=== PATIENT | male | born 1985 | race Two or more races ===

== ENCOUNTER 2021-10-04 15:14 | Outpatient (CLI) | payer OTHER ==
--- NOTE | 2021-10-04 16:13 | SLEEP CARE CONSULTATION ---
Information from patient questionnaire entered by Martell Collins MA. I have reviewed and concur with the information entered by Martell Collins MA. This document represents the service I personally performed and the decisions made by me, [place] ARNP. History of Present Illness Service Date and Time: 10/04/2021 1514 Reason for Visit: New patient (ONSET 08/28/2021, NO PRIORS,) Chief Complaint: reports: Unrefreshed sleep, Snoring, Excessive daytime sleepi ness, Observed pauses in breathing, Fatigue, Frequent awakenings at night Date of Onset: 2 MONTHS Usual bedtime: 10 PM Time it takes to fall asleep: 1 HOURS Snores at night: Yes Observed to quit breathing while asleep: Yes Sleeps alone due to snoring: No Number of times waking at night: 3 Reasons for waking at night: reports: Snoring, Bathroom. denies: Choking, Gasping for air Toss, Turn, or Twitch while sleeping: Yes Recalls having dreams: No Usually gets out of bed at: 0600; weekends 0800 Feels refreshed in the morning: No Morning headache: Yes (3 times a week; they last a few hours, takes analgesic) Sleepy or fatigued during the day: Yes Ever fallen asleep while driving: Yes (drowsy driving, no accidents) Takes day naps: Yes (on weekends, sometimes about 2 hours) Dreams during day naps: No Prior sleep studies: No Additional HPI information: I had the pleasure of seeing SE CANSECO today regarding the possibility of him having a sleep disorder. His current complaints are unrefreshed sleep, snoring, excessive daytime sleepiness, observed pauses in breathing, fatigue and frequent night awakenings. He states that he told his PCM that he wakes up tired and is tired throughout the day. He states he is just wanting to sleep during the day. It is affecting his work and his memory seems to be affected. He states he snores loudly and has occasional pauses in breathing when sleeping. He states most of his daytime fatigue started a couple of months ago. He had not paid attention to his snoring, etc in the past. He thinks it is just coming together as he gets older. He states there is no sleep disordered breathing history in his family but there is snoring. He is in the [employer] and deploying to [place] in [place]. 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 Patient is Single and lives in . Have you smoked in the past 12 months: No Alcohol use: Yes Alcohol amount and frequency: 3 X MONTHLY Caffeine use: No Family History Family history of sleep disordered breathing: Yes Family Hx Sleep Apnea: Father: Snoring, Grandparent: Snoring Allergies and Home Medications Known drug allergies: No Drug allergies reviewed: Yes Home medication list reviewed: Yes Allergy and home medication list: no daily medications or supplements Review of Systems Weight gain over past 5 years: 10 Cardiovascular: denies: high blood pressure Gastrointestinal: denies: heartburn Urinary: reports: frequency Neurological: denies: head trauma Psychiatric: denies: anxiety, depression, mood disorder Ear/Nose/Throat: reports: wisdom teeth removed. denies: injury to nose, tonsillectomy Endocrine: reports: increased urination. denies: thyroid disease Musculoskeletal: reports: back pain Immunologic: denies: allergies to food or environment Physical Exam Vital signs obtained and entered by: Cecelia COLLINS CMA [facility] Blood Pressure: 129/89 (LEFT, 69 PULSE, RESP 14, ) Cuff size: wrist Heart Rate: 65 O2 Saturation: 97 (N95) Height: 5 ft 6 in Weight: 164 lb (PT CLOTHES) Body Mass Index: 26.4 BMI Classification: Overweight Neck circumference: 16 (INCHES) Mouth and throat: narrow oropharynx Soft palate: long Hard palate: normal Uvula: normal Uvula visualization: 25% Mallampati Class III Tongue: enlarged in size with teeth dickey on lateral edges Tonsils: small Neck: normal w/o lymphadenopathy or thyromegaly Heart: regular rate and rhythm Impression and Plan 1. Suspected Obstructive Sleep Apnea-Hypopnea Syndrome, as suggested by a history of loud and irregular snoring, observed cessation of breath while asleep, morning headache, frequent awakening during the night, unrefreshed sleep, cognitive impairment, and excessive daytime sleepiness. Narrow oropharynx and obesity are common predisposing factors for obstructive sleep apnea-hypopnea syndrome. I recommend proceeding to polysomnography to confirm the diagnosis and to assess severity. If the patient has significant sleep disordered breathing, a manual CPAP titration study will also be performed to find the optimal treatment pressure. I informed the patient of what the sleep studies involve and after some discussion, obtained agreement to proceed. The pathophysiology of obstructive sleep apnea-hypopnea syndrome was discussed with the patient and health risks of cardiovascular and cerebrovascular disease if not treated. Risks of drowsy driving discussed in detail and patient advised to avoid long distance driving and to pullman car repairer at the first sign of drowsiness. Patient agreed to plan. * Schedule polysomnography * Avoid long distance driving or driving when feeling sleepy. * Avoid alcohol, sedative and muscle relaxant around bedtime. * Attempt to lose weight. * Review instructions provided by trained office staff on how to prepare for the sleep study. * Return for follow-up after sleep study completed. Counseling Topics: Weight loss health impact Visit Type: In Office Time Spent with Patient (minutes): 30 Provider Statement: I spent 100% of the Face to Face Visit with the patient with greater than 50% spent counseling the patient and coordination of care.
[2021-10-04 16:16] VITALS: BP 129/89
== END 2021-10-04 15:15 | disposition home or self-care (01) ==
LOC: SC 15:14
PROVIDERS: ATTEND Nurse Practitioner Family
DX: R06.83 Snoring (principal); R06.81 Apnea, not elsewhere classified; G47.8 Other sleep disorders; R51.9 Headache, unspecified; R41.89 Other symptoms and signs involving cognitive functions and awareness; G47.10 Hypersomnia, unspecified
CPT/HCPCS: 99203; 99212

== ENCOUNTER 2021-10-15 08:18 | Outpatient (CLI) | payer OTHER | END 2021-10-15 08:19 | disposition home or self-care (01) | LOC: SC 08:18 | PROVIDERS: ATTEND Nurse Practitioner Family | DX: R09.02 Hypoxemia (principal) | CPT/HCPCS: 95806 ==

== ENCOUNTER 2021-10-24 10:24 | Outpatient (CLI) | payer OTHER ==
--- NOTE | 2021-10-24 11:06 | SLEEP CARE CONSULTATION ---
Information from patient questionnaire entered by Martell Brown MA. I have reviewed and concur with the information entered by Martell Brown MA. This document represents the service I personally performed and the decisions made by , [place] ARNP. History of Present Illness Service Date and Time: 10/24/2021 1024 Initial [place] Sleepiness Scale score: 15 (2021) Current [place] Sleepiness Scale score: 19 (10/16) Additional HPI information: SE CANSECO returns for follow up and results of the recently performed home sleep study. The patient was informed of the following findings: No significant sleep disordered breathing with an average AHI of 3.4 and cielo oxygen saturation of 90%. However patient did not sleep supine so sleep disordered breathing on his back cannot be ruled out. I explained the pathophysiology behind obstructive sleep apnea. Patient does not have sleep apnea and was advised how weight gain could increase the risk of developing sleep apnea in the future. Patient has mild snoring. Snoring can be reduced by weight loss. Weight loss is best achieved with diet consult. Patient instructed to contact PCP for referral. Snoring can also be treated with an oral appliance from a dentist. Advised to check insurance coverage. In addition, an ENT evaluation can be do to see if other treatment is indicated. Patient counseled not drink alcohol less than 4 hours before bedtime as it can increase snoring and apnea. Patient was cautioned about risks of drowsy driving until sleepiness symptoms resolve. Sleep Study - Results Type of Sleep Study: Home sleep study (F/U HOME STUDY, 10/15/21 [facility],) Prior sleep studies: No Polysomnography/Home Sleep Study results: Physician Impression: The quality of the study is good. The length of the study is adequate (> 240 minutes). Please also see the tabulated and graphic data. 1. No significant sleep disordered breathing, with an AHI of 3.4/hr and [place] SaO2 of 90%. During the study, the patient had 9 apneas (9 obstructive, 0 central, 0 mixed) and 10 hypopneas. The longest episode lasted 102.5 seconds. The patient did not sleep supine during this study. 2. Hypoxemia (ICD-10 R09.02), , with the lowest oxygen saturation of 90 % and 0.2 minutes with SaO2 under 90%. Baseline oxygen saturation was normal (Average oxygen saturation was 96%). Allergies and Home Medications Home medication list reviewed: Yes (no changes) Review of Systems Review of systems same as previous: Yes (no changes) Physical Exam Vital signs obtained and entered by: SRIDHAR ORTIZ Blood Pressure: 124/80 (LEFT, PULSE 67, RESP 16. ) Heart Rate: 67 O2 Saturation: 98 (N95) Height: 5 ft 6 in Weight: 165 lb (PT CLOTHES) Body Mass Index: 26.6 BMI Classification: Overweight Impression and Plan 1. Snoring but no significant sleep disordered breathing. Patient advised that often weight loss will reduce snoring as well as apnea risk. An oral appliance can also be used for snoring. This would require a dental consultation. Patient cautioned not to use other online appliances as can cause bite issues. A list of accredited dentists in [facility] and one local dentist who makes oral appliances is available in office. Patient is advised to check if insurance will cover. An ENT consult can also be helpful to determine if any other treatment is an option. 2. Excessive daytime sleepiness. Patient continues to have EDS and states that he only slept non-supine for the study because he thought that he was supposed to avoid back sleeping. I would like his to repeat the sleep study in the sleep lab to get a better evaluation with him also sleeping supine. 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 He was advised to get a referral back to this office when he returns to the area and we will order another sleep study at that time. In the meantime, I encouraged him to practice positional therapy and sleep on his sides until able to repeat the study in the lab. He voiced understanding and agreement with this plan. * Return to office for further evaluation when back in the area * Attempt to lose weight * Avoid alcohol consumption near bedtime * The patient is cautioned about driving until sleepiness is completely resolved. Counseling Topics: Sleeping position, Weight loss health impact Visit Type: In Office Time Spent with Patient (minutes): 21 Provider Statement: I spent 100% of the Face to Face Visit with the patient with greater than 50% spent counseling the patient and coordination of care.
[2021-10-24 11:07] VITALS: BP 124/80
== END 2021-10-24 10:25 | disposition home or self-care (01) ==
LOC: SC 10:24
PROVIDERS: ATTEND Nurse Practitioner Family
DX: R09.02 Hypoxemia (principal); R06.83 Snoring; G47.10 Hypersomnia, unspecified; E66.3 Overweight; Z68.26 Body mass index [BMI] 26.0-26.9, adult
CPT/HCPCS: 99212; 99213

== ENCOUNTER 2022-05-25 08:07 | Outpatient (CLI) | payer OTHER ==
--- NOTE | 2022-05-27 09:14 | MRI Report ---
PROCEDURE: LUMBAR SPINE WO INDICATIONS: LOW BACK PAIN TECHNIQUE: Noncontrast sagittal T1 spin echo and T2 fast echo, sagittal STIR, axial T1 and T2 fast spin echo thr ough the lumbar spine. In cases with scoliosis, additional coronal T2 fast spin echo may be performe d. COMPARISON: None. FINDINGS: Image quality: Excellent. Alignment and Curvature: There is mild straightening of normal lumbar curvature. There is 6 mm retro listhesis of L5 on S1. Bone Marrow: Marrow is of normal overall signal. No acute vertebral body compression fractures. Spinal Cord: Conus medullaris terminates at the L1 level. Visualized cord demonstrates normal signa l and size. Paraspinous Soft Tissues: No paravertebral masses. Discs: Moderate desiccation is present at L5-S1. There is mild increased T2 signal posteriorly sugges tive annular fissure at L5-S1 T12-L1: No disc bulge, spinal stenosis or foraminal narrowing. L1-L2: No disc bulge, spinal stenosis or foraminal narrowing. L2-L3: No disc bulge, spinal stenosis or foraminal narrowing. L3-L4: No disc bulge, spinal stenosis or foraminal narrowing. L4-L5: No disc bulge, spinal stenosis or foraminal narrowing. L5-S1: Mild disc bulge with posterior central protrusion. No spinal stenosis. Trace left foraminal narrowing. IMPRESSION: Mild disc bulge with posterior central protrusion without spinal stenosis at L5-S1. Trace left forami nal narrowing. Reviewed by: Kourtney Murphy MD on 05/27/2022 9:12 AM PDT Approved by: Kourtney Murphy MD on 05/27/2022 9:12 AM PDT Station ID: [id number]
== END 2022-05-25 08:08 | disposition home or self-care (01) ==
LOC: DI 08:07
DX: M51.27 Other intervertebral disc displacement, lumbosacral region (principal)

== ENCOUNTER 2023-12-10 08:23 | Outpatient (CLI) | payer OTHER ==
--- NOTE | 2023-12-10 09:06 | Sleep Patient Instructions ---
Sleep Center Visit Summary - Patient Visit Information Reason for Visit: Annual followup - Patient Instructions Instructions Attached: Sleep Study Additional Instructions: You will be completing a sleep study, either an in-lab polysomnography (PSG) or home sleep study (HST). You will follow-up in the sleep care office after the sleep study is completed to hear the results and talk about therapy, if needed. You will be called by our office staff to schedule this appointment, but you may contact us with any questions. - Clinic Information Contact: [facility] [address] [place] [id number] [email or web address] T: [phone]
--- NOTE | 2023-12-10 09:08 | SLEEP CARE CONSULTATION ---
Information from patient questionnaire entered by Eliz Gamboa. I have reviewed and concur with the information entered by Eliz Gamboa. This document represents the service I personally performed and the decisions made by me, [place] ARNP. History of Present Illness Service Date and Time: 12/10/2023 08 Reason for follow up: annual (LAST SEEN 09/2021) Prior sleep studies: No Type of Sleep Study: Home sleep study (F/U HOME STUDY, 10/15/21 [facility],) HPI additional information: I had the pleasure of seeing SE CANSECO today regarding the possibility of him having a sleep disorder. His current complaints are difficulty falling asleep initially, snoring, observed pauses in breathing, unrefreshed sleep and excessive daytime sleepiness. He feels like his symptoms have been getting worse over time. He says he feels like he is having restless leg symptoms where his legs are shaking and sometimes during the day his arms will start shaking or feel very tense. His legs will shake when he is sitting and relaxing. The patient tells me that he normally goes to bed around 9:30 pm, and it takes him approximately 3.5 hours to fall asleep. He has taken diphenhydramine in the past to help him fall asleep. He says it did not help him fall asleep but he stayed asleep better. He is currently taking for muscle pain and that helps him to feel drowsy but not get to sleep. He has not had anything really help him fall asleep better. He has been told that he snores loudly and irregularly at night. He has been observed to stop breathing in his sleep. His bed partner has to sleep in another room due to the loudness of his snoring. He can recall waking up on the average of 3 times during the night. Most of the time he wakes up because of nightmares, gasping for air and other unknown reasons. He has occasionally awakened for his own snoring, and having to gasp for air. There is a lot of tossing and turning in his sleep. Generally he can recall having dreams. He usually wakes up at [id number] and does not feel refreshed. He usually does not have a morning headache. During the day he complains of feeling sleepy and fatigued. He has fallen asleep while driving and has gone out of the erick, no accident. He usually does not take naps during the day. There is somniloquy (sleep talking) but no somnambulism (sleep walking). He reports having impaired concentration during the day. Sleep Study - Results Type of Sleep Study: Home sleep study (F/U HOME STUDY, 10/15/21 [facility],) Prior sleep studies: No Subjective Initial [place] Sleepiness Scale score: 15 (2021) Current [place] Sleepiness Scale score: 20 (12/10/2023) Allergies and Home Medications Known drug allergies: No Drug allergies reviewed: Yes Home medication list reviewed: Yes (as listed) Allergy and home medication list: Allergies No Known Drug Allergies Allergy (Verified 12/10/23 08:42) Home Medications Cyclobenzaprine [Flexeril] See Rx Instructions .ROUTE .COMPLEX 12/10/23 [History] Fluticasone [Flonase] See Rx Instructions .ROUTE .COMPLEX 12/10/23 [History] Meloxicam See Rx Instructions .ROUTE .COMPLEX 12/10/23 [History] Patonal See Rx Instructions .ROUTE .COMPLEX 12/10/23 [History] Potanse See Rx Instructions .ROUTE .COMPLEX 12/10/23 [History] Propranolol [Inderal] See Rx Instructions .ROUTE .COMPLEX 12/10/23 [History] Tretinoin See Rx Instructions .ROUTE .COMPLEX 12/10/23 [History] buPROPion [Wellbutrin Sr] See Rx Instructions .ROUTE .COMPLEX 12/10/23 [History] Review of Systems Review of systems same as previous: No (PTSD, anxiety, depression, symptoms of restless leg syndrome) Physical Exam Vital signs obtained and entered by: ELIZ Palacios MA Blood Pressure: 120/76 Heart Rate: 74 O2 Saturation: 99 Height: 5 ft 6 in Weight: 168 lb 6.4 oz Body Mass Index: 27.1 BMI Classification: Overweight Impression and Plan 1. Suspected Obstructive Sleep Apnea-Hypopnea Syndrome, as suggested by a history of loud and irregular snoring, observed cessation of breath while asleep, gasping or choking in sleep, unrefreshed sleep, cognitive impairment, and excessive daytime sleepiness. I recommend proceeding to polysomnography to confirm the diagnosis and to assess severity. If the patient has significant sleep disordered breathing, a manual CPAP titration study will also be performed to find the optimal treatment pressure. I informed the patient of what the sleep studies involve and after some discussion, obtained agreement to proceed. The pathophysiology of obstructive sleep apnea-hypopnea syndrome was discussed with the patient and health risks of cardiovascular and cerebrovascular disease if not treated. Risks of drowsy driving discussed in detail and patient advised to avoid long distance driving and to taffy puller at the first sign of drowsiness. Patient agreed to plan. * Schedule polysomnography. * Avoid long distance driving or driving when feeling sleepy. * Avoid alcohol, sedative and muscle relaxant around bedtime. * Attempt to lose weight. * Review instructions provided by trained office staff on how to prepare for the sleep study. * Return for follow-up after sleep study completed. Counseling Topics: Weight loss health impact Plan: PSG and followup Visit Type: In Office Time Spent with Patient (minutes): 27 Provider Statement: I spent 100% of the Face to Face Visit with the patient with greater than 50% spent counseling the patient and coordination of care.
[2023-12-10 09:15] VITALS: BP 120/76; O2SAT 99
== END 2023-12-10 08:24 | disposition home or self-care (01) ==
LOC: SC 08:23
PROVIDERS: ATTEND Nurse Practitioner Family
DX: R06.83 Snoring (principal); R06.81 Apnea, not elsewhere classified; G47.8 Other sleep disorders; G47.10 Hypersomnia, unspecified; R41.89 Other symptoms and signs involving cognitive functions and awareness; E66.3 Overweight; Z68.27 Body mass index [BMI] 27.0-27.9, adult
CPT/HCPCS: 99203; 99212

== ENCOUNTER 2024-02-23 19:28 | Outpatient (CLI) | payer OTHER | END 2024-02-23 19:29 | disposition home or self-care (01) | LOC: SC 19:28 | PROVIDERS: ATTEND Nurse Practitioner Family | DX: R06.83 Snoring (principal); G47.10 Hypersomnia, unspecified; R53.83 Other fatigue; G47.8 Other sleep disorders; R06.81 Apnea, not elsewhere classified; F32.A Depression, unspecified | CPT/HCPCS: 95810 ==

== ENCOUNTER 2024-03-09 09:22 | Outpatient (CLI) | payer OTHER ==
--- NOTE | 2024-03-09 09:43 | Sleep Patient Instructions ---
Sleep Center Visit Summary - Patient Visit Information Reason for Visit: Sleep study follow-up - Patient Instructions Instructions Attached: Snoring Tips Prevent Additional Instructions: Your sleep study today was negative for significant sleep disordered breathing. However, you did have elevated respiratory episodes when sleeping on your back. You should avoid sleeping on your back to control these respiratory episodes. You were found to have episodes of snoring. There are different ways to control snoring including weight loss, oral devices made by a dentist or surgical options through ENT specialist. You should not use oral devices that do not fit properly because they can affect your bite. You should also check insurance coverage of oral devices for snoring because they may not be cover well. You may obtain a referral to an ENT specialist through your primary provider. Follow-up as needed. - Clinic Information Contact: [facility] [address] [place] [address] [email or web address] T: [phone]
--- NOTE | 2024-03-09 09:48 | SLEEP CARE CONSULTATION ---
Information from patient questionnaire entered by Eliz Gamboa. I have reviewed and concur with the information entered by Eliz Gamboa. This document represents the service I personally performed and the decisions made by , [place] ARNP. History of Present Illness Service Date and Time: 03/09/2024921 Initial [place] Sleepiness Scale score: 15 (2021) Current [place] Sleepiness Scale score: 21 (03/09/24) Additional HPI information: [place] returns for follow up and results of the recently performed polysomnography done on 02/23/24. The patient was informed of the following findings: No significant sleep disordered breathing with an average AHI of 4.2 and cielo oxygen saturation of 86%. I explained the pathophysiology behind obstructive sleep apnea. Patient does not have sleep apnea and was advised how weight gain could increase the risk of developing sleep apnea in the future. I strongly encouraged the patient to lose weight. Patient does not have significant sleep disordered breathing but has elevated AHI in supine position so advised positional therapy. Methods to achieve positional management therapy were discussed; such as, positioning with pillows, wearing a T-shirt with tennis balls sewn into the back or commercially available products. Patient has mild snoring. Snoring can be reduced by weight loss. Weight loss is best achieved with diet consult. Patient instructed to contact PCP for referral. Snoring can also be treated with an oral appliance from a dentist. Advised to check insurance coverage. In addition, an ENT evaluation can be do to see if other treatment is indicated. Patient counseled not drink alcohol less than 4 hours before bedtime as it can increase snoring and apnea. Patient was cautioned about risks of drowsy driving until sleepiness symptoms resolve. Patient denies drowsy driving. Sleep Study - Results Type of Sleep Study: Polysomnography (F/U HOME STUDY, 10/15/21 [facility], COMPLETED 02/23/24) Prior sleep studies: No Polysomnography/Home Sleep Study results: IMPRESSION: The quality of the study is good. The patient had slightly reduced sleep efficiency due to frequent awakenings during the night. The sleep architecture was abnormal for sleep fragmentation and reduced amount of time spent in slow wave sleep (N3). Respiratory monitoring showed no significant sleep disordered breathing (AHI = 4.2) or hypoxia (cielo oxygen saturation of 86% and < 0.1% of the total sleep time was spent with oxygen saturation below 90%). The few respiratory events occurred almost exclusively during supine sleep (supine AHI = 15.7; non-supine = 0.66). Snore was light in intensity. There was no significant periodic leg movement of sleep. Cardiac rhythm was normal sinus rhythm without significant arrhythmia. No abnormal behavior (parasomnia) observed during the night. Allergies and Home Medications Known drug allergies: No Drug allergies reviewed: Yes Home medication list reviewed: Yes (as listed) Allergy and home medication list: Allergies No Known Drug Allergies Allergy (Verified 03/09/24 09:28) Home Medications Medication Instructions Recorded Confirmed Last Taken Type Cyclobenzaprine [Flexeril] See Rx Instructions .ROUTE .COMPLEX 12/10/23 03/09/24 Unknown History Fluticasone [Flonase] See Rx Instructions .ROUTE .COMPLEX 12/10/23 03/09/24 Unknown History Meloxicam See Rx Instructions .ROUTE .COMPLEX 12/10/23 03/09/24 Unknown History Patonal See Rx Instructions .ROUTE .COMPLEX 12/10/23 03/09/24 Unknown History Potanse See Rx Instructions .ROUTE .COMPLEX 12/10/23 03/09/24 Unknown History Propranolol [Inderal] See Rx Instructions .ROUTE .COMPLEX 12/10/23 03/09/24 Unknown History Tretinoin See Rx Instructions .ROUTE .COMPLEX 12/10/23 03/09/24 Unknown History buPROPion [Wellbutrin Sr] See Rx Instructions .ROUTE .COMPLEX 12/10/23 03/09/24 Unknown History Review of Systems Review of systems same as previous: Yes (NO CHANGE) Physical Exam Vital signs obtained and entered by: ELIZ Palacios MA Blood Pressure: 122/79 (RIGHT ARM) Cuff size: regular Heart Rate: 74 O2 Saturation: 99 Height: 5 ft 6 in Weight: 165 lb 12.8 oz Body Mass Index: 26.7 BMI Classification: Overweight Impression and Plan 1. Snoring but no significant sleep disordered breathing. However, he had elevated supine AHI (moderate apneas on his back) and should avoid sleeping supine. We discussed ways to stay off his back including using pillows or positional belts to remind him to stay off his back. He voiced understanding. Patient advised that often weight loss will reduce snoring as well as apnea risk. An oral appliance can also be used for snoring. This would require a dental consultation. Patient cautioned not to use other online appliances as can cause bite issues. Patient is advised to check if insurance will cover. An ENT consult can also be helpful to determine if any other treatment is an option. 2. Overweight, unspecified. Currently patients BMI is 26.7. Obesity increases the risk of apnea, CPAP pressure requirements and overall health risks especially cardiovascular and diabetes. Thus patient is advised to maintain a healthy weight. * Avoid sleeping supine * Maintain a healthy weight * Avoid alcohol consumption near bedtime * Return as needed for follow up. Counseling Topics: Sleeping position, Weight loss health impact Follow up with Sleep Care in: as needed Visit Type: In Office Time Spent with Patient (minutes): 12 Provider Statement: I spent 100% of the Face to Face Visit with the patient with greater than 50% spent counseling the patient and coordination of care.
[2024-03-09 09:52] VITALS: BP 122/79; O2SAT 99
== END 2024-03-09 09:23 | disposition home or self-care (01) ==
LOC: SC 09:22
PROVIDERS: ATTEND Nurse Practitioner Family
DX: R06.83 Snoring (principal); E66.3 Overweight; Z68.26 Body mass index [BMI] 26.0-26.9, adult
CPT/HCPCS: 99212